=== PATIENT | female | born 1995 | race African-American/Black ===

== ENCOUNTER 2021-08-15 07:56 | Emergency (ER) | payer MEDICAID ==
[2021-08-15 08:41] LABS: #Eosinphils 0.3 thou/uL (0.0-0.7); #Lymphocytes 1.6 thou/uL (1.20-3.40); #Monocytes 0.6 thou/uL (0.11-0.59); #Neutrophils 2.2 thou/uL (1.40-6.50); %Basophils 0.9 % (0.0-1.0); %Eosinophils 5.7 % (0.0-10.0); %Lymphocytes 34.6 % (21.0-51.0); %Monocytes 11.9 % (0.0-10.0); %Neutrophils 46.8 % (42.0-75.0); Hemoglobin 12.1 g/dL (12.0-16.0); Mean Corpuscular Hemoglobin 28.7 pg (27.0-31.0); Mean Corpuscular Volume 89.7 fL (78.0-98.0); Mean Platelet Volume 9.9 fL (7.4-10.4); Platelet Count 204 thou/uL (130-400); RBC Distribution Width 13.2 % (11.5-14.5); Red Blood Cell (RBC) Count 4.21 mill/uL (4.20-5.40); White Blood Cell (WBC) Count 4.6 thou/uL (4.8-10.8)
[2021-08-15 08:56] LABS: ALT (SGPT) 11 U/L (8-55); AST (SGOT) 16 U/L (5-34); Alkaline Phosphatase 55 U/L (40-110); Anion Gap 12 mmol/L (10-20); BUN (Urea Nitrogen) 8 mg/dL (7.0-18.7); Bilirubin, Total 0.4 mg/dL (0.2-1.2); Calc. Creatinine Clearance 0 mL/min (70-130); Carbon Dioxide 24 mmol/L (22-29); Chloride 107 mmol/L (98-107); Globulin 3.3 g/dL (2.4-3.5); Glucose 98 mg/dL (70-105); Lipase 26 U/L (8-78); Potassium 3.7 mmol/L (3.5-5.1); Protein, Total 7.3 g/dL (6.0-8.3); Sodium 139 mmol/L (136-145)
[2021-08-15] MEDS ORDERED: Ibuprofen 200 MG TAB ONE (09:50)
[2021-08-15 12:04] LABS: Troponin I Less than 0.010 ng/mL (< 0.028)
== END 2021-08-15 12:20 | disposition home or self-care (01) ==
LOC: NAV ERS 07:56
DX: R07.81 Pleurodynia (principal)
CPT/HCPCS: 71046; 80053; 83690; 84484; 85025; 85379; 93005

== ENCOUNTER 2024-01-26 22:16 | Emergency (ER) | payer MEDICAID, SELFPAY ==
[2024-01-26 23:16] LABS: Pregnancy Test - Urine (BHCG) Negative (Negative); Pregu Control Background? CLEAR/WHITE (CLR/WHITE); Pregu Control Bar Appear? YES (CONTROL BAR)
[2024-01-26] MEDS ORDERED: Ibuprofen 200 MG TAB ONE (23:35)
== END 2024-01-27 00:31 | disposition home or self-care (01) ==
LOC: NAV ERS 22:16
DX: S39.012A Strain of muscle, fascia and tendon of lower back, initial encounter (principal); V89.2XXA Person injured in unspecified motor-vehicle accident, traffic, initial encounter
CPT/HCPCS: 72100; 81025

== ENCOUNTER 2024-06-03 07:33 | Emergency (ER) | payer MEDICAID, SELFPAY ==
[2024-06-03] MEDS ORDERED: Ondansetron ODT 4 MG TAB ONE (08:27)
[2024-06-03 08:38] LABS: Bilirubin Small (Negative); Blood, Urine Negative (Negative); Clarity Slightly Cloudy (Clear); Glucose, Urine (Dipstick) Negative (Negative); Ketone, Urine Trace mg/dL (Negative); Leukocyte Negative (Negative); Nitrite Negative (Negative); Protein, Urine (Dipstick) Negative (Neg-Trace); Urobilinogen 0.2 mg/dL (Less than 2)
[2024-06-03 08:41] LABS: Pregnancy Test - Urine (BHCG) Negative (Negative)
[2024-06-03 08:42] LABS: Pregu Control Background? CLEAR/WHITE (CLR/WHITE); Pregu Control Bar Appear? YES (CONTROL BAR); Specific Gravity 1.028 (1.002-1.036)
[2024-06-03 08:43] LABS: Specific Gravity, Urine 1.028 (1.002-1.036)
[2024-06-03 08:47] LABS: Bacteria/HPF Rare-Few HPF (None Seen); CAUTI Indications for Culture Pelvic or flank pain; RBC/HPF 0-3 HPF (0-3); Squamous Epithelial 0-3 HPF (0-3)
[2024-06-03 08:48] LABS: Urine Culture Reflex No No
[2024-06-03] MEDS ORDERED: Ibuprofen 200 MG TAB ONE ×2 (09:05→09:19)
[2024-06-05 06:42] LABS: Chlamydia by PCR, EndoCx Swab Not Detected (NotDetected); GC by PCR, EndoCx Swab Not Detected (NotDetected)
== END 2024-06-03 09:35 | disposition home or self-care (01) ==
LOC: NAV ERS 07:33
DX: N76.0 Acute vaginitis (principal); B97.89 Other viral agents as the cause of diseases classified elsewhere; R10.31 Right lower quadrant pain; R10.2 Pelvic and perineal pain; R11.10 Vomiting, unspecified
CPT/HCPCS: 81001; 81025; 87077; 87086; 87491; 87591; 99284; Q0162